=== PATIENT | male | born 1960 | race Caucasian/White ===

== ENCOUNTER 2023-07-02 11:54 | Day surgery (SDC) | payer MEDICAID, SELFPAY ==
[2023-07-02] VITALS (12 sets, daily range): BP systolic 130–208; BP diastolic 87–113; PULSE 56–81; RESP 16–20; TEMP 35.9–36.8; O2SAT 95–99; BMI 31.0
--- NOTE | ~2023-07-02 | XR_ITS ---
EXAMINATION: XR HAND, RIGHT CLINICAL INFORMATION: Laceration over second/third metacarpals posteriorly. COMPARISON: None available. TECHNIQUE: PA, lateral, and oblique views of the right hand. FINDINGS: Soft tissue laceration projects posterior to the region of the second metacarpal. Soft tissues are swollen in this area. No radiopaque foreign body. There appears to be punctate calcific density projecting posterior to the region of the 2nd metacarpal head. Gauze projects over the hand. Alignment is normal and hand and wrist. There is ulnar osteophyte formation of the distal radioulnar joint. Small osteophytes at first carpometacarpal joint and at some of the interphalangeal joints. XR/XR hand RT min 3V IMPRESSION: * Posttraumatic soft tissue swelling dorsal to region of second and third metacarpals without radiopaque foreign body. * The presence of punctate calcification dorsal to region of 2nd metacarpal head is suspicious for recent penetrating injury to the bone surface.
--- NOTE | 2023-07-02 11:57 | ED_ITS ---
HPI - General Adult General Chief complaint: Wound/Laceration Stated complaint: Finger laceration Time Seen by Provider: 07/02/23 11:59 Source: patient Mode of arrival: ambulatory Limitations: no limitations History of Present Illness HPI narrative: Patient is a 63 year old assigned male at with no reported medical history presenting to the emergency department today with a right hand injury. Patient states that he was working with a table saw cutting small wood pieces when he got cut on his right hand. Patient denies any dizziness, lightheadedness, abdominal pain, nausea, vomiting, fever, chills, blurry vision, double vision, loss of vision, chest pain, difficulty breathing, shortness of breath, back pain, night sweats, pain with urination, increased urinary frequency, increased urinary urgency, blood in his urine or stool, syncope or a near syncopal episode, bowel incontinence, bladder incontinence, bowel retention, bladder retention, or any other complaints at this time. Onset (ago): minute(s) Location: right and upper extremity Radiation: non-radiation Severity: moderate Severity scale (1-10): 5 Relieving factors: none Exacerbating factors: none Associated symptoms: denies other symptoms Treatments prior to arrival: none Related Data Home Medications Medication Instructions Recorded Confirmed olmesartan 40 1 tab PO QAM 07/02/23 07/02/23 mg-hydrochlorothiazide 12.5 mg tablet Previous Rx's Medication Instructions Recorded amoxicillin 875 mg-potassium 1 tab PO BID infection prophylaxis 07/02/23 clavulanate 125 mg tablet 14 days #28 tabs oxycodone-acetaminophen 5 mg-325 1 tab PO Q6-8H PRN pain (scale 07/02/23 mg tablet (Percocet) score 4-6) 7 days #42 tabs Allergies Allergy/AdvReac Type Severity Reaction Status Date / Time No Known Allergies Allergy Verified 07/02/23 11:57 Review of Systems 2 Constitutional: Constitutional: Reports no additional constitutional complaints, Denies chills, Denies fever(s) and Denies night sweats Eyes: Eyes: Reports no additional eye complaints, Denies blurry vision, Denies change in vision, Denies diplopia, Denies eye discharge, Denies loss of vision and Denies eye pain ENT: Denies dizziness Cardiovascular: Cardiovascular: Reports no additional cardiovascular complaints, Denies chest pain, Denies lightheadedness, Denies Loss of Consciousness and Denies dyspnea Respiratory: Respiratory: Reports no additional respiratory complaints and Denies dyspnea Gastrointestinal: Gastrointestinal: Reports no additional gastrointestinal complaints, Denies abdominal pain, Denies melena, Denies hematochezia, Denies change in bowel habits and Denies change in stool character Genitourinary: Genitourinary: Reports no additional male genitourinary complaints, Denies hematuria, Denies oliguria, Denies difficulty urinating, Denies dysuria, Denies urinary frequency, Denies urinary hesitancy, Denies urinary incontinence and Denies urinary urgency Musculoskeletal: Musculoskeletal: Reports no additional musculoskeletal complaints, Denies numbness and Denies tingling Comments: right hand pain / injury Neurologic: Denies dizziness, Denies loss of vision, Denies numbness and Denies tingling Psychiatric: Psychiatric: Reports no additional psychiatric complaints Endocrine: Endocrine: Reports no additional endocrine complaints Hematologic/Lymphatic: Hematologic/Lymphatic: Reports no additional hematologic/lymphatic complaints Allergic/Immunologic: Allergic/Immunologic: Reports no additional allergic/immunologic complaints [facility] Past Medical History Attestation statement: The following information was validated with the patient. Source: old records reviewed, obtained from family (patient's daughter provided additional history and confirmed the history provided by the patient) and nursing notes reviewed Medical History (Updated 07/02/23 @ 14:53 by Di Juares RN) HTN (hypertension) Surgical History (Updated 07/02/23 @ 14:53 by Di Juares RN) H/O toe surgery Social History Social History Patient Tobacco Use Status: Never used Tobacco Physical Exam ED Vital Signs: Vital Signs - 24 hr 07/02/23 12:38 07/02/23 12:49 07/02/23 14:45 Temperature 96.6 F L 97.9 F Pulse Rate 69 56 Respiratory Rate 18 18 18 Blood Pressure 159/103 H 208/103 H Pulse Oximetry 96 99 Oxygen Delivery Method Room Air Room Air 07/02/23 15:01 07/02/23 15:02 07/02/23 15:10 Temperature Pulse Rate 58 57 Respiratory Rate 20 20 Blood Pressure 174/113 H 163/108 H 159/103 H Pulse Oximetry 99 98 Oxygen Delivery Method Room Air 07/02/23 15:19 Temperature 97.6 F Pulse Rate 62 Respiratory Rate 18 Blood Pressure 149/98 H Pulse Oximetry 97 Oxygen Delivery Method Room Air BMI result Body Mass Index 31.0 Const General: cooperative, no acute distress, alert and awake Nutritional Appearance: well nourished Orientation/consciousness: patient oriented x3 Limitations: no limitations HENMT Head: Yes normal to inspection and Yes atraumatic Ears: hearing grossly normal bilaterally and external ears normal General nose exam: Normal external nose present, no nasal discharge noted and no epistaxis Face and sinus: Yes normal facial exam, No abrasion and No laceration Mouth: Normal oral and palatal mucosa present, no drooling and no muffled voice Eyes General: appearance normal, both eyes and all related structures Periorbital: periorbital findings normal Eyelids: Yes eyelids normal Conjunctivae: conjunctivae normal Pupils: Equal, round and reactive pupils present EOM: EOMs intact bilaterally Neck Neck: Yes normal visual inspection, Yes full ROM and Yes no lymphadenopathy Chest Chest palpation & inspection: normal inspection of the chest Resp Effort & Inspection: normal respiratory effort and able to speak in complete sentences GI Inspection: Yes normal to inspection Neuro General: patient oriented x3 and moves all extremities Cranial nerves: Yes Equal, round and reactive pupils present Cognition (Neuro): normal cognition Motor exam (neuro): 5/5 motor strength present throughout Sensory Exam: Normal double simultaneous stimulation for sensation Coordination: [id number] test normal Extrem Other: patient unable to extend the 2nd digit General: Yes capillary refill normal Psych Appearance: grossly normal Mental Status: mental status grossly normal Affect: normal affect Attitude: cooperative Thought process: Normal thought process present Thought content: Normal thought content present Insight: Good insight present (Psych) Medications Administered Discontinued Medications Generic Name Dose Route Start Last Admin Trade Name Freq PRN Reason Stop Dose Admin Diphtheria/Tetanus/Acell Pertussis 0.5 ml 07/02/23 11:57 07/02/23 12:20 Diphth,Pertus(Acell),Tet Adult 0.5 Ml Syringe IM 07/02/23 11:58 0.5 ml .ONCE ONE Administration Lidocaine HCl 15 ml 07/02/23 11:58 07/02/23 13:37 Lidocaine Hcl 1 % Mpf 5 Ml Vial SUBCUT 07/02/23 11:59 15 ml ONCE ONE Administration Medical Decision Making Medical Decision Making MDM Narrative: Patient is a 63 year old assigned male at with no reported medical history presenting to the emergency department today with a right hand laceration. Patient's physical exam was as noted in the physical exam portion of this note. Patient's blood work was unremarkable. Patient's EKG was unremarkable. Patient's right hand x-ray showed questionable bassam involvement of the 2nd digit. I spoke to the orthopedic team who recommended the patient come to the OR for washout and extensor tendon repair. I explained my physical exam findings as well as all test results to the patient and the patient's daughter. I answered all questions asked by the patient and the patient's daughter. Patient brought up to date on tetanus while in the department. Patient [and the patient's] verbalized agreement and understanding with this treatment plan and surgical washout with extensor repair. Differential Diagnosis Differential Diagnoses: The differential diagnosis associated with the presentation includes Extensor tendon rupture Extensor tendon laceration Hand laceration Hand fracture Admission/Observation Consideration of admission/observation: Escalation of care including admission/observation considered Patient to go to the OR with orthopedic team. Consult Healthcare Provider Management of the patient was discussed with: Skewer Up (spoke with the orthopedic team as noted in the MDM Rational portion of this note.) Lab Data [facility] Lab Attestation statement: I reviewed the patient's lab results. My interpretation of these results are in the MDM Rationale portion of this note. 07/02/23 14:37 07/02/23 14:37 Labs: Lab Results 07/02/23 Range/Units 14:37 WBC 8.0 (4.8-10.8) X10*3/uL RBC 5.50 (4.60-5.80) X10*6/uL Hgb 15.6 (14.0-18.0) g/dl Hct 46.5 (42.0-52.0) % MCV 84.5 (80.0-98.0) fL MCH 28.4 (27.0-33.0) pg MCHC 33.5 (31.0-36.0) g/dl RDW 12.9 (11.0-16.0) % Plt Count 187 (160-400) X10*3/uL MPV 9.7 (9.4-12.4) fL Immature Gran % (Auto) 0.3 (0.0-0.4) % Neut % (Auto) 67.3 (45-73) % Lymph % (Auto) 23.4 (20-40) % Pacific % (Auto) 7.4 (2-11) % Eos % (Auto) 1.1 (0-4) % Baso % (Auto) 0.5 (0-2) % Lymph # (Auto) 1.9 (1.2-4.9) X10*3/uL Pacific # (Auto) 0.6 (0.1-1.2) X10*3/uL Eos # (Auto) 0.1 (0.0-0.4) X10*3/uL Baso # (Auto) 0.0 (0.0-0.2) X10*3/uL Abs Immat Gran (auto) 0.02 (0.00-0.03) X10*3/uL Absolute Neuts (auto) 5.4 (2.0-8.3) x10*3/uL Absolute Nucleated RBC 0.000 (0.0-0.012) X10*3/uL Nucleated RBC % (auto) 0.0 (0.0-0.2) /100WBC Sodium 144 (135-145) mmol/L Potassium 4.4 (3.3-5.1) mmol/L Chloride 107 (96-108) mmol/L Carbon Dioxide 30 H (22-29) mmol/L Anion Gap 11 L (12-20) BUN 12 (9-16) mg/dL Creatinine 0.85 (0.5-1.4) mg/dL Estim Creat Clear Calc 101.3 Estimated GFR > 60 Random Glucose 91 (60-115) mg/dL Calcium 9.9 (8.4-10.2) mg/dL Total Bilirubin 0.6 (0.0-1.0) mg/dL AST 31 (5-37) U/L ALT 38 (0-40) U/L Alkaline Phosphatase 88 (39-117) U/L Total Protein 7.8 (6.5-8.0) g/dL Albumin 4.6 (3.5-5.0) g/dL Independent Interpretation I performed an independent interpretation of an: EKG and Plain X-Ray Interpretation: My interpretation is in agreement with the radiologist's impression of this imaging study. - EXAMINATION: XR HAND, RIGHT CLINICAL INFORMATION: Laceration over second/third metacarpals posteriorly. COMPARISON: None available. TECHNIQUE: PA, lateral, and oblique views of the right hand. FINDINGS: Soft tissue laceration projects posterior to the region of the second metacarpal. Soft tissues are swollen in this area. No radiopaque foreign body. There appears to be punctate calcific density projecting posterior to the region of the 2nd metacarpal head. Gauze projects over the hand. Alignment is normal and hand and wrist. There is ulnar osteophyte formation of the distal radioulnar joint. Small osteophytes at first carpometacarpal joint and at some of the interphalangeal joints. XR/XR hand RT min 3V IMPRESSION: * Posttraumatic soft tissue swelling dorsal to region of second and third metacarpals without radiopaque foreign body. * The presence of punctate calcification dorsal to region of 2nd metacarpal head is suspicious for recent penetrating injury to the bone surface. Dictated By: Marco Esquivel MD Signed By: Electronically signed by Marco Esquivel MD 07/02/23 1314 - Vent. Rate: 056 BPM Atrial Rate: 056 BPM P-R Int: 166 ms QRS Dur: 086 ms QT Int: 424 ms P-R-T Axes: 010 -15 037 degrees QTc Int: 409 ms Sinus bradycardia Minimal voltage criteria for LVH, may be normal variant ( R in aVL ) Borderline ECG No previous ECGs available Referred By: Chyna Sepulveda Electronically Signed By:AUDIE LUO MD Dictated By: Audie Luo MD Signed By: Electronically signed by Audie Luo MD 07/02/23 7271 Radiology Impression Discussion of test interpretation with radiology: I have reviewed the radiologist's reading. Independent Historian Clinical information obtained from an independent historian. History obtained from or confirmed by: Other (patient's daughter provided additional history and confirmed the history provided by the patient) Critical Care Time Critical Care Time Critical Care Time: Yes Total Critical Care Time: 128 Attestation: I spent 128 minutes of Critical Care Time with this patient. This does not include time spent on separately reported billable procedures. Discharge Plan Discharge Clinical Impression: Laceration, Extensor tendon laceration, finger, open wound Patient Disposition: Still a Patient Transfer Details: TO THE OR Discharge Date/Time: 07/02/23 15:12
--- NOTE | 2023-07-02 12:00 | PC.NURSE ---
PT REPORTED THAT HE WAS AT HOME CUTTING WOOD W HIS CHAINSAW, IT SLIPPED AND CUT HIS R HAND. PT'S HAND CLEANED AND COVERED PENDING EVAL.
[2023-07-02] MEDS: Diphth,Pertus(ACell),Tet Adult 0.5 ML SYRINGE IM (12:20)
[2023-07-02] MEDS: Lidocaine HCl 1 % MPF 5 ML VIAL 15 ML SUBCUT (13:37)
--- NOTE | 2023-07-02 14:06 | ECG_ITS ---
Test Reason : preop Blood Pressure : / mmHG Vent. Rate : 056 BPM Atrial Rate : 056 BPM P-R Int : 166 ms QRS Dur : 086 ms QT Int : 424 ms P-R-T Axes : 010 -15 037 degrees QTc Int : 409 ms Sinus bradycardia Minimal voltage criteria for LVH, may be normal variant ( R in aVL ) Borderline ECG No previous ECGs available Referred By: Chyna Sepulveda Electronically Signed By:KELLI LUO MD
--- NOTE | 2023-07-02 14:44 | P.HPOP_ITS ---
History of Present Illness History of Present Illness Date of Service: 07/02/23 Chief complaint: Finger laceration Narrative: Bhaskar Hayes is a 63 year old male who presented to the ED after sustaining a table saw injury to the dorsal aspect of the right hand. He has no significant past medicine. Patient reports no oral intake today. Review of Systems 2 Review of Systems: Yes all other systems are reviewed and are negative Meds Allergies Allergy/AdvReac Type Severity Reaction Status Date / Time No Known Allergies Allergy Verified 07/02/23 11:57 Physical Exam 2 Vital Signs: Vital Signs: Last Vital Signs Temp 96.6 F L 07/02/23 12:38 Pulse 69 07/02/23 12:38 Resp 18 07/02/23 12:49 BP 159/103 H 07/02/23 12:38 Pulse Ox 96 07/02/23 12:38 O2 Del Method Room Air 07/02/23 12:38 BMI result Body Mass Index 31.0 Const: General: cooperative, healthy appearing and no acute distress Resp: Effort & Inspection: normal respiratory effort and able to speak in complete sentences Cardio: Rate: regular rate Peripheral pulses: Peripheral pulses 2+ throughout GI: Palpation (GI): Soft to palpation Skin: Lesions: no lesions Rashes: no rashes Extrem: Other: Right hand laceration over the dorsal aspect over the MCP joints on the index and middle fingers. Unable to extend the index finger. Able to extend the middle, ring, little, and thumb. Able to flex all digits. Capillary refill is brisk. Results Labs 07/02/23 14:37 07/02/23 14:37 Labs: All other labs normal. Assessment and Plan (1) Extensor tendon laceration, finger, open wound: Status: Acute I discussed the case with Dr. Dillon who was also available to see the patient and explained the extent of the injury to the patient and options available which include surgical intervention. I explained the procedure in detail along with the length of recovery and rehab course. I explained the risk, benefits and alternatives. Risk including, but not limited to infection, blood clots, bleeding, non union or malunion and nerve/tissue damage to surrounding areas. I answered all their questions and with their understanding they have consented to move forward with extensor tendon repair of the right hand. I also spoke with his daughter Connie who can be reached at [phone] (2) Laceration: Status: Acute Quality Stroke Does the patient have a stroke diagnosis?: No VTE Prior VTE?: No VTE Risk Level:: Medical - moderate - high VTE Device Contraindication: N/A - Device Ordered VTE Drug Contraindication: N/A - Med Ordered Procedures Date of Service Date of Service: 07/02/23
[2023-07-02 14:49] LABS: MANUAL DIFF FLAG NO
[2023-07-02 14:54] LABS: Basophils Percent Auto 0.5 % (0-2); Eosinophils Absolute Auto 0.1 X10*3/uL (0.0-0.4); Eosinophils Percent Auto 1.1 % (0-4); Hematocrit 46.5 % (42.0-52.0); Hemoglobin 15.6 g/dl (14.0-18.0); Imm Gran Abs Auto 0.02 X10*3/uL (0.00-0.03); Imm Gran Pct Auto 0.3 % (0.0-0.4); Lymphocytes Absolute Auto 1.9 X10*3/uL (1.2-4.9); Lymphocytes Percent Auto 23.4 % (20-40); Mean Corpuscular HGB Conc 33.5 g/dl (31.0-36.0); Mean Corpuscular Hemoglobin 28.4 pg (27.0-33.0); Mean Corpuscular Volume 84.5 fL (80.0-98.0); Mean Platelet Volume 9.7 fL (9.4-12.4); Monocytes Absolute Auto 0.6 X10*3/uL (0.1-1.2); Monocytes Percent Auto 7.4 % (2-11); Neutrophils Absolute Auto 5.4 x10*3/uL (2.0-8.3); Neutrophils Percent Auto 67.3 % (45-73); Platelet Count 187 X10*3/uL (160-400); Red Cell Distribution Width 12.9 % (11.0-16.0)
--- NOTE | 2023-07-02 15:02 | PC.NURSE ---
iv placed in the ed
[2023-07-02 15:07] LABS: Alanine Aminotransferase 38 U/L (0-40); Albumin Level 4.6 g/dL (3.5-5.0); Alkaline Phosphatase 88 U/L (39-117); Anion Gap 11 (12-20); Aspartate Amino Transferase 31 U/L (5-37); Bilirubin Total 0.6 mg/dL (0.0-1.0); Blood Urea Nitrogen 12 mg/dL (9-16); Calcium 9.9 mg/dL (8.4-10.2); Carbon Dioxide 30 mmol/L (22-29); Chloride 107 mmol/L (96-108); Creatinine Clr Calc Pharmacy 101.3; Estimated Glomerular Filt Rate > 60; Glucose Random 91 mg/dL (60-115); Potassium 4.4 mmol/L (3.3-5.1); Sodium 144 mmol/L (135-145); Total Protein 7.8 g/dL (6.5-8.0)
--- NOTE | 2023-07-02 15:23 | PC.NURSE ---
report given to charli lobato pt pending surgery aware
--- NOTE | 2023-07-02 15:50 | MHC.SHP ---
Pre-Procedural Eval Section A - 24 Hr Update-Section A only Date of Service: 07/02/23 The patient is an INPATIENT: No Changes since office visit: No Cold of Flu in the past 2 weeks, No New Medical Problems, No Changes in Medication and No Patient answered all questions The patient has been examined within 24 hours of the surgical procedure. The History & Physical has been completed within 30 days and I have reviewed it.: Yes Section B - Complete if H&P > 30 days Chief Complaint: Finger laceration Allergies: Allergies Allergy/AdvReac Type Severity Reaction Status Date / Time No Known Allergies Allergy Verified 07/02/23 11:57 Plan I have reviewed the history and physical and performed a pertinent physical examination on my patient. No changes have occurred unless specified. Time Spent With Patient Time: Total time managing care of this patient today ____ minutes.
--- NOTE | 2023-07-02 16:10 | HO.ANESPROP2 ---
[facility] [place] Active Problems Active Problems: All Active Problems (Updated 07/02/23 @ 14:53 by Di Juares RN) Extensor tendon laceration, finger, open wound (Acute) Laceration (Acute) Past Medical History Medical History (Updated 07/02/23 @ 14:53 by Di Juares RN) HTN (hypertension) Family History Family history of problems with anesthesia: No Surgical History Surgical History (Updated 07/02/23 @ 14:53 by Di Juares RN) H/O toe surgery History of Problems with Anesthesia: No Social History Social History Patient Tobacco Use Status: Never used Tobacco Meds Allergies Allergy/AdvReac Type Severity Reaction Status Date / Time No Known Allergies Allergy Verified 07/02/23 11:57 Active Medications: Current Medications Cefazolin Sodium/Dextrose (Ancef) 2 gm in 50 mls @ 100 mls/hr IV PREOP ONE Stop: 07/02/23 16:19 Home Medications Medication Instructions Recorded Confirmed Last Taken Type olmesartan 40 1 tab PO QAM 07/02/23 07/02/23 07/02/23 History mg-hydrochlorothiazide 12.5 mg tablet Exam Height,Weight and Vital Signs: Height 5 ft 9 in Weight 95.254 kg Last Vital Signs Temp 97.6 F 07/02/23 15:19 Pulse 62 07/02/23 15:19 Resp 18 07/02/23 15:19 BP 149/98 H 07/02/23 15:19 Pulse Ox 97 07/02/23 15:19 O2 Del Method Room Air 07/02/23 15:19 Pertinent Lab Results Pertinent Lab Results: Laboratory Tests 07/02/23 14:37 WBC 8.0 RBC 5.50 Hgb 15.6 Hct 46.5 MCV 84.5 MCH 28.4 MCHC 33.5 RDW 12.9 Plt Count 187 MPV 9.7 Immature Gran % (Auto) 0.3 Neut % (Auto) 67.3 Lymph % (Auto) 23.4 Mayes % (Auto) 7.4 Eos % (Auto) 1.1 Baso % (Auto) 0.5 Lymph # (Auto) 1.9 Mayes # (Auto) 0.6 Eos # (Auto) 0.1 Baso # (Auto) 0.0 Abs Immat Gran (auto) 0.02 Absolute Neuts (auto) 5.4 Absolute Nucleated RBC 0.000 Nucleated RBC % (auto) 0.0 Sodium 144 Potassium 4.4 Chloride 107 Carbon Dioxide 30 H Anion Gap 11 L BUN 12 Creatinine 0.85 Estim Creat Clear Calc 101.3 Estimated GFR > 60 Random Glucose 91 Calcium 9.9 Total Bilirubin 0.6 AST 31 ALT 38 Alkaline Phosphatase 88 Total Protein 7.8 Albumin 4.6 Airway Mallampati Class: III TM Dist: <=3cm Neck ROM: Full Loose/Missing/Broken Teeth: No Heart: rrr Lungs: cta Assessment and Plan Final Anesthetic Review Family History of Problems with Anesthesia: No History of Problems with Anesthesia: No NPO: Yes ASA Class: II and Emergency Final Preanesthetic Review: No Changes in Pt Med Stat, Meds/Allgs Chart Reviewed, Consent Obtained/Reviewed and Anes Risks/Benef Reviewed Patient Risk: Intermediate Procedure Risk: Low Anesthetic Plan Anesthetic Plan: GA Disposition: Standard PACU
--- NOTE | 2023-07-02 17:02 | P.BOP_ITS ---
Brief Operative Note Date of Service: 07/02/23 Pre-op diagnosis: Right dorsal hand laceration Post-op diagnosis: same Procedure: 1) Extensor tendon repair right IF 2) Right extensor jordan repair, right IF 3) Irrigation and debridement right dorsal hand wound Surgeon: hTomas Dillon MD Anesthesia: GETA and local Was an Motor Equipment Lieutenant used for this Procedure?: Yes Motor Equipment Lieutenant: Michela Becker Estimated blood loss (mL): 25 IV fluids (mL): 1,000 Pathology: none sent Condition: stable Disposition: PACU
--- NOTE | 2023-07-06 16:22 | P.OP_ITS ---
Operative Note Operative Note Date of Service: 07/02/23 Narrative: Date of Service: 07/02/23 Pre-op diagnosis: Right dorsal hand laceration Post-op diagnosis: same Procedure: 1) Extensor tendon repair right IF 2) Right extensor jordan repair, right IF 3) Irrigation and debridement right dorsal hand wound Surgeon: Thomas Dillon MD Anesthesia: GETA and local Was an Automotive Electrician used for this Procedure?: Yes Automotive Electrician: Michela Becker Estimated blood loss (mL): 25 IV fluids (mL): 1,000 Pathology: none sent Condition: stable Disposition: PACU Patient was brought to the operating room and placed supine on the surgical table. He was prepped and draped in standard sterile fashion and a time out was called to identify proper site, proper procedure and IV antibiotics per weight were administered. There was a open oblique incision just distal to the dorsum of the index finger MCP joint. I opened this up without additional need for incision and explored the wound. The deep structures over the long finger were unharmed. There was a complete laceration of the extensor jordan and extensor tendon of the index finger with bony penetration of the proximal aspect of the proximal phalanx. I debrided thoroughly and irrigated copiously. I explored the MCP capsule but this was unharmed. The extensor jordan along with the extensor digitorum were lacerated. I debrided out the 2 tendon ends and then repaired these with 5 0 8 strand Prolene repair. I had excellent strengthen the repair took the finger through full range of motion was satisfied with the stability. I then repaired the extensor jordan along the radial and ulnar aspect of the proximal phalanx. Once completed I again took the index finger through range of motion and the repair was stable. I then irrigated copiously and closed the skin with interrupted nylon. Patient was placed into a sterile dressing and a well-padded splint in a position of safety. He was awakened from anesthesia and brought to recovery room in stable condition. There were no known complications.
== END 2023-07-02 17:52 | disposition home or self-care (01) ==
LOC: HO.ED 14:27 → HO.SSS 14:31
PROVIDERS: Physician Assistant Medical; Emergency Provider Emergency Medicine; Visit Provider Orthopaedic Surgery
PROC: (CPT 26418; principal; 2023-07-02 15:30)
PROC: (CPT 26418; 2023-07-02 15:30)
DX: S66.320A Laceration of extensor muscle, fascia and tendon of right index finger at wrist and hand level, initial encounter (principal); S61.411A Laceration without foreign body of right hand, initial encounter; W27.0XXA Contact with workbench tool, initial encounter; Y93.89 Activity, other specified; Y92.9 Unspecified place or not applicable; Y99.9 Unspecified external cause status; Z23 Encounter for immunization; I10 Essential (primary) hypertension; Z79.899 Other long term (current) drug therapy
CPT/HCPCS: 26418 ×2; 11042; 36415; 73130; 80053; 85025; 90471; 90715; 93005; 99283; 99285; J0690; J2250; J2704; J2795; J3010

== ENCOUNTER → 2023-07-02 14:06 | Outpatient (BNV) | payer MEDICAID, SELFPAY | PROVIDERS: Emergency Provider Emergency Medicine; Visit Provider Internal Medicine Cardiovascular Disease | DX: Z01.818 Encounter for other preprocedural examination (principal) | CPT/HCPCS: 93010 ==

== ENCOUNTER → 2023-07-02 14:20 | Outpatient (BNV) | payer MEDICAID, SELFPAY | PROVIDERS: Emergency Provider Emergency Medicine; Visit Provider Physician Assistant | DX: S61.210A Laceration without foreign body of right index finger without damage to nail, initial encounter (principal); S66.320A Laceration of extensor muscle, fascia and tendon of right index finger at wrist and hand level, initial encounter | CPT/HCPCS: 26418; 99222 ==

== ENCOUNTER 2023-07-10 12:10 | Outpatient (AMB) | payer MEDICAID, SELFPAY ==
--- NOTE | 2023-07-10 12:27 | A.OFFVIS_ITS ---
Intake Intake Visit Reasons: PO - Extensor tendon laceration per NE Intake Note: Bhaskar is a 63 year old rightmale who presents today for a post op appointment s/p right extendon tendon/jordan repair 07/02/23 NE. Patient reports he is doing good. Having some pain but he states is a 2 out of 10 on the pain scale. Allergies No Known Allergies Allergy (Verified 07/10/23 12:30) HPI PO - Extensor tendon laceration per NE HPI Details 63-year-old male who presents in the off ice today 8 days status post right index finger extensor tendon repair, right extensor jordan repair, and irrigation and debridement right dorsal hand wound, which was performed by Dr. Dillon on 07/02/2023. While in the office today the patient reports having some pain and rates it a 2/10. [facility] Medical History (Updated 07/10/23 @ 00:01 by Nilda Alexandra) HTN (hypertension) Surgical History (Updated 07/02/23 @ 14:53 by Di Juares RN) H/O toe surgery Social History (Updated 07/10/23 @ 12:32 by Michael Watson) Alcohol intake: never Patient Tobacco Use Status: Never used Tobacco Current occupational status: employed Current occupation: [employer]/ right hand dominant Review of Systems Const All systems reviewed & are unremarkable except as noted in HPI and below Physical Exam Const General: cooperative, healthy appearing and no acute distress Resp Effort & Inspection: normal respiratory effort and able to speak in complete sentences Cardio Rate: regular rate Peripheral pulses: Peripheral pulses 2+ throughout GI Palpation (GI): Soft to palpation Skin Lesions: no lesions Rashes: no rashes Extrem Other: Right hand: Laceration on the dorsal aspect that is clean, dry, and intact. Sutures intact. No surrounding erythema or drainage. No signs of infection. Sensation intact. Capillary refill is brisk. Office Procedures Casting/Splints 29096-Ylna/Wrist Cast Application Procedure code (CPT) selection complete Assessment & Plan Assessment & Plan (1) Extensor tendon laceration, finger, open wound: Code(s): S56.429A - Laceration of extensor muscle, fascia and tendon of unspecified finger at forearm level, initial encounter; S61.209A - Unspecified open wound of unspecified finger without damage to nail, initial encounter (2) Laceration: Plan Mr. Hayes is a 63-year-old male who presents in the office today 8 days status post right index finger extensor tendon repair, right extensor jordan repair, and irrigation and debridement right dorsal hand wound, which was performed by Dr. Dillon on 07/02/2023. While in the office today the patient reports having some pain and rates it a 2/10. Dr. Aemzquita was available to discuss the case with me and it was recommended that the patient is placed in a cast for a total of 6 weeks post-op. The cast will leave the thumb, ring, and little fingers free and will include the index and middle fingers. He will be casted to the PIP of the index and middle fingers, leaving the DIP joints able to flex and extend. I anticipated removal of the remaining sutures at the 1 week follow up appointment. Follow up will be in one week for a cast off wound check, or sooner if needed. Patient Instructions: Scribed by Ambar Stovall medical technologist clinical, for Michela Becker PA-C on 07/10/2023 at 12:20 pm, EST. Coding Level of Care Code Global (75404) Diagnoses Extensor tendon laceration, finger, open wound S56.429A; S61.209A Laceration CPT Codes Casting - CPT: 64413-Xwnl/Wrist Cast Application ([id number])
== END 2023-07-10 13:25 | disposition home or self-care (01) ==
PROVIDERS: Visit Provider Physician Assistant
DX: S56.421A Laceration of extensor muscle, fascia and tendon of right index finger at forearm level, initial encounter (principal); S61.201A Unspecified open wound of left index finger without damage to nail, initial encounter
CPT/HCPCS: 29085; 99024

== ENCOUNTER → 2023-07-10 12:10 | Outpatient (BNVA) | payer MEDICAID, SELFPAY | PROVIDERS: Visit Provider Physician Assistant | DX: S56.421D Laceration of extensor muscle, fascia and tendon of right index finger at forearm level, subsequent encounter (principal); S61.401D Unspecified open wound of right hand, subsequent encounter | CPT/HCPCS: 29085; 99212 ==

== ENCOUNTER 2023-07-17 08:32 | Outpatient (AMB) | payer MEDICAID, SELFPAY ==
--- NOTE | 2023-07-17 08:40 | MHC.OFFVIS ---
Intake Intake Visit Reasons: ov- extensor tendon repair 07/02/2023-sutures out Intake Note: Bhaskar is a 63 year old right hand dominant male who presents today for a post op appointment s/p right extendon tendon/jordan repair 07/02/23 NE. Patient reports he is doing well. He states no pain or discomfort. Allergies No Known Allergies Allergy (Verified 07/17/23 08:48) HPI ov- extensor tendon repair 07/02/2023-sutures out HPI Details 63-year-old right hand dominant male who presents in the office today 15 days status post right index finger extensor tendon repair, right extensor jordan repair, and irrigation and debridement right dorsal hand wound, which was performed by Dr. Dillon on 07/02/2023. I last saw the patient in the office on 07/10/2023 when he was placed into a cast with the thumb, ring, and little finger free. He was be casted to the PIP of the index and middle fingers, leaving the DIP joints able to flex and extend. While in the office today the patient reports he is doing well. He denies any pain or discomfort. [facility] Medical History (Updated 07/17/23 @ 08:50 by Ambar Stovall) HTN (hypertension) Surgical History (Updated 07/02/23 @ 14:53 by Di Juares RN) H/O toe surgery Social History Alcohol intake: never Patient Tobacco Use Status: Never used Tobacco Current occupational status: employed Current occupation: [employer]/ right hand dominant Review of Systems Const All systems reviewed & are unremarkable except as noted in HPI and below Physical Exam Const General: cooperative, healthy appearing and no acute distress Resp Effort & Inspection: normal respiratory effort and able to speak in complete sentences Cardio Rate: regular rate Peripheral pulses: Peripheral pulses 2+ throughout GI Palpation (GI): Soft to palpation Skin Lesions: no lesions Rashes: no rashes Extrem Other: Right hand: Laceration on the dorsal aspect that is clean, dry, and intact. Remaining sutures are intact. No surrounding erythema or drainage. No signs of infection. Sensation intact. Capillary refill is brisk. Office Procedures Casting/Splints 42983-Tikw/Wrist Cast Application Procedure code (CPT) selection complete Assessment & Plan Assessment & Plan (1) Extensor tendon laceration, finger, open wound: Code(s): S56.429A - Laceration of extensor muscle, fascia and tendon of unspecified finger at forearm level, initial encounter; S61.209A - Unspecified open wound of unspecified finger without damage to nail, initial encounter Qualifiers: Encounter type: subsequent encounter Qualified Code(s): S56.429D - Laceration of extensor muscle, fascia and tendon of unspecified finger at forearm level, subsequent encounter; S61.209D - Unspecified open wound of unspecified finger without damage to nail, subsequent encounter (2) Laceration: Plan Ms. Hayes is a 63-year-old right hand dominant male who presents in the office today 15 days status post right index finger extensor tendon repair, right extensor jordan repair, and irrigation and debridement right dorsal hand wound, which was performed by Dr. Dillon on 07/02/2023. I last saw the patient in the office on 07/10/2023 when he was placed into a cast with the thumb, ring, and little finger free. He was be casted to the PIP of the index and middle fingers, leaving the DIP joints able to flex and extend. While in the office today the patient reports he is doing well. He denies any pain or discomfort. Remaining sutures were removed. He was placed back into the custom molded cast to include the index and middle fingers in slight flexion. I educated the patient on cast care and should he need a cast change for any reason he should contact the office. I educated the importance of keeping the area clean and dry. Follow up will be in 3 weeks for cast removal, or sooner if needed. Patient Instructions: Scribed by Ambar Stovall nuclear medical technologist, for Michela Becker PA-C on 07/17/2023 at 8:40 am, EST. Coding Level of Care Code Global (15890) Diagnoses Extensor tendon laceration of finger with open wound, subsequent encounter S56.429D; S61.209D Encounter type: subsequent encounter Laceration CPT Codes Casting - CPT: 23216-Rdlg/Wrist Cast Application ([id number])
== END 2023-07-17 09:46 | disposition home or self-care (01) ==
PROVIDERS: Visit Provider Physician Assistant
DX: S56.421A Laceration of extensor muscle, fascia and tendon of right index finger at forearm level, initial encounter (principal); S61.200A Unspecified open wound of right index finger without damage to nail, initial encounter
CPT/HCPCS: 29085; 99024

== ENCOUNTER → 2023-07-17 08:32 | Outpatient (BNVA) | payer MEDICAID, SELFPAY | PROVIDERS: Visit Provider Physician Assistant | DX: Z47.89 Encounter for other orthopedic aftercare (principal); S56.429D Laceration of extensor muscle, fascia and tendon of unspecified finger at forearm level, subsequent encounter; S61.209D Unspecified open wound of unspecified finger without damage to nail, subsequent encounter | CPT/HCPCS: 29085; 99212 ==

== ENCOUNTER 2023-08-07 08:24 | Outpatient (AMB) | payer MEDICAID, SELFPAY ==
[2023-08-07 08:26] VITALS: BMI 31.7
--- NOTE | 2023-08-07 08:26 | MHC.OFFVIS ---
Vital Signs 08/07/23 08:26 Height 5 ft 9 in Weight 215 lb BMI 31.7 Intake Visit Reasons: PO - Extensor tendon laceration per NE Intake Note: Bhaskar is a 63 year old right hand dominant male who presents today for a post op appointment s/p right extendon tendon/jordan repair 07/02/23 NE. Patient reports no pain or concerns today. Accompanied by: Daughter Allergies No Known Allergies Allergy (Verified 08/07/23 08:30) HPI HPI PO - Extensor tendon laceration per NE: Details: 63-year-old right hand dominant male who presents in the office today 5 weeks status post right index finger extensor tendon repair, right extensor jordan repair, and irrigation and debridement right dorsal hand wound, which was performed by Dr. Dillon on 07/02/2023. I last saw the patient in the office on 07/17/2023 when he was placed back into a cast with the index and middle fingers in slight flexion. While in the office today the patient reports no pain or concerns. He would like to request removal of the cast today. [facility] Medical History (Updated 07/17/23 @ 08:50 by Ambar Stovall) HTN (hypertension) Surgical History (Updated 07/02/23 @ 14:53 by Di Juares RN) H/O toe surgery Social History Alcohol intake: never Patient Tobacco Use Status: Never used Tobacco Current occupational status: employed Current occupation: [employer]/ right hand dominant Review of Systems Const All systems reviewed & are unremarkable except as noted in HPI and below Physical Exam Vital Signs: BMI result Body Mass Index 31.7 Const General: cooperative, healthy appearing and no acute distress Resp Effort & Inspection: normal respiratory effort and able to speak in complete sentences Cardio Rate: regular rate Peripheral pulses: Peripheral pulses 2+ throughout GI Palpation (GI): Soft to palpation Skin Lesions: no lesions Rashes: no rashes Extrem Other: Right hand: Laceration on the dorsal aspect that is clean, dry, and intact. No surrounding erythema or drainage. No signs of infection. Lacking about 3cm from making a closed fist with the index finger. Sensation intact. Capillary refill is brisk. Assessment & Plan Assessment & Plan (1) Extensor tendon laceration, finger, open wound: Code(s): S56.429A - Laceration of extensor muscle, fascia and tendon of unspecified finger at forearm level, initial encounter; S61.209A - Unspecified open wound of unspecified finger without damage to nail, initial encounter Category: Medical Qualifiers: Encounter type: subsequent encounter Qualified Code(s): S56.429D - Laceration of extensor muscle, fascia and tendon of unspecified finger at forearm level, subsequent encounter; S61.209D - Unspecified open wound of unspecified finger without damage to nail, subsequent encounter (2) Laceration: Category: Medical Plan Mr. Hayes is a 63-year-old right hand dominant male who presents in the office today 5 weeks status post right index finger extensor tendon repair, right extensor jordan repair, and irrigation and debridement right dorsal hand wound, which was performed by Dr. Dillon on 07/02/2023. I last saw the patient in the office on 07/17/2023 when he was placed back into a cast with the index and middle fingers in slight flexion. While in the office today the patient reports no pain or concerns. He would like to request removal of the cast today. Patient has expected postoperative stiffness. A referral to occupational therapy was made. He does not need to cover the laceration stie on the right hand's dorsal aspect unless he is working with things that might get the laceration dirty to avoid infection risk. Follow up will be in 2 weeks for a ROM check, or sooner if needed. Orders: Orders OT Evaluation and Treatment Today S56.429D - Laceration of extensor muscle, fascia and tendon of unspecified finger at forearm level, subsequent encounter, S61.209D - Unspecified open wound of unspecified finger without damage to nail, subsequent encounter Patient Instructions: Scribed by Ambar Stovall medical laboratory technical officer, for Michela Becker PA-C on 08/07/2023 at 8:26 am, EST. Coding Level of Care Code Global (41606) Diagnoses Extensor tendon laceration of finger with open wound, subsequent encounter S56.429D; S61.209D Encounter type: subsequent encounter Laceration
== END 2023-08-07 08:57 | disposition home or self-care (01) ==
PROVIDERS: Visit Provider Physician Assistant
DX: S56.429D Laceration of extensor muscle, fascia and tendon of unspecified finger at forearm level, subsequent encounter (principal); S61.209D Unspecified open wound of unspecified finger without damage to nail, subsequent encounter
CPT/HCPCS: 99024

== ENCOUNTER → 2023-08-07 08:24 | Outpatient (BNVA) | payer MEDICAID, SELFPAY | PROVIDERS: Visit Provider Physician Assistant | DX: S56.421D Laceration of extensor muscle, fascia and tendon of right index finger at forearm level, subsequent encounter (principal); S61.200D Unspecified open wound of right index finger without damage to nail, subsequent encounter | CPT/HCPCS: 99212 ==

== ENCOUNTER 2023-08-21 08:35 | Outpatient (AMB) | payer MEDICAID, SELFPAY ==
--- NOTE | 2023-08-21 08:36 | MHC.OFFVIS ---
Vital Signs 08/21/23 08:40 Height 5 ft 9 in Weight 215 lb BMI 31.7 Intake Visit Reasons: PO - Right IF Extensor Tend Repair 07/17/2023 Intake Note: Bhaskar is a 63 year old right hand dominant male who presents today for a ROM check/post op appointment s/p right extendon tendon/jordan repair 07/02/23 NE. Patient reports no pain or discomfort. He expresses that his ROM has improved. Allergies No Known Allergies Allergy (Verified 08/21/23 08:40) HPI HPI PO - Right IF Extensor Tend Repair 07/17/2023: Details: 63-year-old male who presents in the office today for a ROM check; 7 weeks status post right index finger extensor tendon repair, right extensor jordan repair, and irrigation and debridement right dorsal hand wound, which was performed by Dr. Dillon on 07/02/2023. I last saw the patient in the office on 08/07/2023 when he was referred to occupational therapy. While in the office today the patient reports no pain or discomfort. He also reports improvement with his ROM. [facility] Medical History (Updated 07/17/23 @ 08:50 by Ambar Stovall) HTN (hypertension) Surgical History (Updated 07/02/23 @ 14:53 by Di Juares RN) H/O toe surgery Social History Alcohol intake: never Patient Tobacco Use Status: Never used Tobacco Current occupational status: employed Current occupation: [employer]/ right hand dominant Review of Systems Const All systems reviewed & are unremarkable except as noted in HPI and below Physical Exam Vital Signs: BMI result Body Mass Index 31.7 Const General: cooperative, healthy appearing and no acute distress Resp Effort & Inspection: normal respiratory effort and able to speak in complete sentences Cardio Rate: regular rate Peripheral pulses: Peripheral pulses 2+ throughout GI Palpation (GI): Soft to palpation Skin Lesions: no lesions Rashes: no rashes Extrem Other: Right hand: Normal to inspection. No ecchymosis, erythema, or edema. Able to perform full finger flexion, extension, abduction, adduction, finger cross, okay sign, and thumbs up without deficit. Slight stiffness with the index finger with making a closed fist. Sensation intact. Capillary refill is brisk. Radial pulse intact. Assessment & Plan Assessment & Plan (1) Extensor tendon laceration, finger, open wound: Code(s): S56.429A - Laceration of extensor muscle, fascia and tendon of unspecified finger at forearm level, initial encounter; S61.209A - Unspecified open wound of unspecified finger without damage to nail, initial encounter Category: Medical Qualifiers: Encounter type: subsequent encounter Qualified Code(s): S56.429D - Laceration of extensor muscle, fascia and tendon of unspecified finger at forearm level, subsequent encounter; S61.209D - Unspecified open wound of unspecified finger without damage to nail, subsequent encounter (2) Laceration: Category: Medical Plan Mr. Hayes is a 63-year-old male who presents in the office today for a ROM check; 7 weeks status post right index finger extensor tendon repair, right extensor jordan repair, and irrigation and debridement right dorsal hand wound, which was performed by Dr. Dillon on 07/02/2023. I last saw the patient in the office on 08/07/2023 when he was referred to occupational therapy. While in the office today the patient reports no pain or discomfort. He also reports improvement with his ROM. Patient will continue to work on ROM and strengthening of the right hand. He is content where he has made progress and will return to normal activities as tolerated. Follow up will be PRN, or sooner if needed. Patient Instructions: Scribed by Ambar Stovall medical assisting program director, for Michela Becker PA-C on 08/21/2023 at 8:42 am, EST. Coding Level of Care Code Global (73586) Diagnoses Extensor tendon laceration of finger with open wound, subsequent encounter S56.429D; S61.209D Encounter type: subsequent encounter Laceration
[2023-08-21 08:40] VITALS: BMI 31.7
== END 2023-08-21 09:02 | disposition home or self-care (01) ==
PROVIDERS: Visit Provider Physician Assistant
DX: S56.429D Laceration of extensor muscle, fascia and tendon of unspecified finger at forearm level, subsequent encounter (principal); S61.209D Unspecified open wound of unspecified finger without damage to nail, subsequent encounter
CPT/HCPCS: 99024

== ENCOUNTER → 2023-08-21 08:35 | Outpatient (BNVA) | payer MEDICAID, SELFPAY | PROVIDERS: Visit Provider Physician Assistant | DX: S56.429D Laceration of extensor muscle, fascia and tendon of unspecified finger at forearm level, subsequent encounter (principal); S61.209D Unspecified open wound of unspecified finger without damage to nail, subsequent encounter | CPT/HCPCS: 99212 ==

== ENCOUNTER 2023-10-24 14:18 | Emergency (ER) | payer MEDICAID, SELFPAY ==
--- NOTE | ~2023-10-24 | CT_ITS ---
EXAMINATION: CT HEAD WITHOUT CONTRAST CLINICAL INFORMATION: Follow-up tiny parafalcine subdural hemorrhage. COMPARISON: CTA head dated 10/24/2023. TECHNIQUE: Contiguous axial imaging was performed from the skull base to vertex without intravenous administration of contrast. This CT examination was performed using dose optimization techniques as appropriate, variously including the following: *Automated exposure control *Adjustment of mA and/or kV according to patient size (this includes techniques or standardized protocols for targeted exams where dose is matched to indication/reason for exam; i.e. extremities or head) *Use of iterative reconstruction technique DLP: 679 mGy-cm FINDINGS: There is again a 3 mm focus of parafalcine thickening, which is unchanged from the prior CT examination earlier on 10/24/2023 (5:100). There is no new intracranial hemorrhage or evidence of territorial infarction. No abnormal mass effect or midline shift is seen. Michael to white matter differentiation is well preserved. There is no abnormal attenuation within the brain parenchyma. The ventricles are normal in size. No extra-axial fluid collections are identified. No fracture is seen. There are scalp hematomas at the rightward and posterior vertex and more posteriorly within the scalp. Posterior scalp surgical juan f are noted. The middle ear cavity and mastoid air cells are clear. There is mild layering fluid within the left maxillary sinus. CT/CT head/brain wo IV con IMPRESSION: 1. A minimal parafalcine subdural hemorrhage is unchanged in appearance. 2. No new extra-axial or parenchymal hemorrhage is seen. There is no mass effect. Michael-white matter differentiation is well preserved. 3. Rightward posterior scalp hematomas are seen, without underlying fracture. 4. There is mild left maxillary sinusitis.
--- NOTE | ~2023-10-24 | CT_ITS ---
EXAMINATION: CT HEAD W/O IV CONTRAST CT CERVICAL SPINE W/O IV CONTRAST CLINICAL INFORMATION: History of fall with head strike and laceration. COMPARISON: None TECHNIQUE: Head - Contiguous axial imaging of the head was performed from the skull base to the vertex without the administration of intravenous contrast, and axial images are reconstructed at 0.625 mm and 5 mm slice thickness. Cervical spine - A volumetric, helical CT acquisition of the cervical spine was obtained without contrast; in addition to the standard set of axial images, multiplanar reformatted images were provided in the coronal and sagittal imaging planes. This CT examination was performed using dose optimization techniques as appropriate, variously including the following: *Automated exposure control *Adjustment of mA and/or kV according to patient size (this includes techniques or standardized protocols for targeted exams where dose is matched to indication/reason for exam; i.e. extremities or head) *Use of iterative reconstruction technique DLP: 1090 mGy-cm (total) FINDINGS: HEAD: No evidence of subarachnoid bleed, intraparenchymal or intraventricular hemorrhage. There are areas along the falx in which there is minimal hyperdense thickening of up to 0.2 - 0.3 cm transverse which, in a posttraumatic setting, is suspicious for minimal parafalcine subdural hemorrhage. The cordova-white matter differentiation is maintained. No acute major vascular territory infarction. The ventricles have normal size and contour. No hydrocephalus. The calvarium is intact. There are a few small foci of gas in the occipital scalp at site of soft tissue hematoma compatible with history of laceration. Incidentally noted is mucus - or mucus retention cysts - of inferior maxillary sinuses and trace amount of fluid within left maxillary sinus. The mastoid air cells are well aerated. The orbits and temporomandibular joints are normal. CERVICAL SPINE: The craniocervical junction is normal. The occipital condyles, dens and atlantodental articulation are intact. The vertebral body heights and alignment are maintained. No fractures in the anterior or posterior elements. No prevertebral soft tissue edema or soft tissue hematoma. There is anterior vertebral osteophyte formation at C4-C5, C5-C6 and C6-C7. There is no significant narrowing of the cervical spinal canal or neural foramina. There is a hemangioma of the C7 vertebral body. No suspicious osseous lesions. The lung apices are excluded from [id number]. The right thyroid lobe is larger than the left lobe. The gland is heterogeneous and not optimally evaluated. Thyroid ultrasound follow-up is recommended for this large, heterogeneous thyroid goiter. CT/CT cervical spine wo IV con IMPRESSION: * Acute occipital scalp hematoma has a few small foci of gas consistent with the history of head strike and laceration. No calvarial fracture. * There is likely a very small parafalcine subdural hemorrhage. * Mild spondylosis of the cervical spine. No fracture or malalignment of the spine. The critical test result was discussed with Vidhi Mendez at 4:08 PM on 10/24/2023 and it was ascertained that the content and the importance of the findings was understood at the time of the direct communication.
--- NOTE | ~2023-10-24 | XR_ITS ---
EXAMINATION: XR HAND/WRIST, LEFT CLINICAL INFORMATION: Fell off a ladder. Swelling. COMPARISON: None TECHNIQUE: Four views of the left hand and wrist. FINDINGS: Faint transverse line through the metadiaphysis of the distal radius consistent with a nondisplaced fracture. Moderate joint narrowing and small marginal bone spurs of the PIP joint of the middle finger. Joint spaces are otherwise normal. Benign partial osteosclerosis of the distal phalange of the middle digit XR/XR hand wrist LT IMPRESSION: Nondisplaced fracture of the metadiaphysis of the distal radius.
[2023-10-24 14:21] VITALS: BP 141/72; PULSE 51; RESP 15; TEMP 36.6; O2SAT 99; BMI 29.6
--- NOTE | 2023-10-24 14:22 | ED_ITS ---
HPI - General Adult General Chief complaint: Head Injury Stated complaint: Fell of ladder/head lac Time Seen by Provider: 10/24/23 16:10 Source: patient and remedy developer Mode of arrival: ambulatory Limitations: no limitations History of Present Illness ED Provider: DAYANA HPI narrative: 63 yo male here with PMH of HTN and gout not on thinners or aspirin presents with c/o falling off top of 6ft step ladder landing backwards hitting back of head on rocks, no LOC, he has not vomited. He has not had prior head injury before. He also has L wrist pain. Injury prior to me seeing him was 2 hours. complaint: head injury Onset (ago): hour(s) (2) Location: head, left and upper extremity Radiation: non-radiation Severity: moderate Quality: aching Associated symptoms: other (laceration, L wrist pain) Treatments prior to arrival: other (bandage) Related Data Home Medications ?Medication ?Instructions ?Recorded ?Confirmed olmesartan 40 1 tab PO QAM 07/02/23 07/02/23 mg-hydrochlorothiazide 12.5 mg tablet febuxostat 40 mg tablet 40 mg PO DAILY 07/10/23 Allergies Allergy/AdvReac Type Severity Reaction Status Date / Time No Known Allergies Allergy Verified 10/24/23 14:23 Review of Systems 2 Review of Systems: Constitutional : No Fever, No Chills, No Fatigue ENT/Mouth : No sore throat, No Rhinorrhea Eyes: No Eye Pain, No Swelling, No Redness Cardiovascular : No Chest Pain, No SOB, No Dyspnea on Exertion Respiratory : No Cough, No Sputum Gastrointestinal : No Nausea, No Vomiting, No Diarrhea, No abdominal Pain Genitourinary : No Dysuria, No Urinary Frequency, No Hematuria, Musculoskeletal : pos joint pain, No Myalgias, No Joint Swelling Skin : No Skin Lesions, No rash, pos skin laceration Neuro : No Weakness, No Numbness, No Dizziness, positive Headache Psych : No Anxiety/Panic, No Depression All other systems reviewed and are negative [facility] Past Medical History Attestation statement: The following information was validated with the patient. Source: old records reviewed Medical History HTN (hypertension) Surgical History H/O toe surgery Social History Social History Alcohol intake: never Patient Tobacco Use Status: Never used Tobacco Smoked in Last 30 Days: No Use of substances other than those prescribed or required for medical reasons: No Advance Directives: No Advance Directives Information Provided: No Do you have a plan to hurt others: No Plan Current occupational status: employed Current occupation: [employer]/ right hand dominant Physical Exam ED Vital Signs: Vital Signs - 24 hr 10/24/23 14:21 10/24/23 16:06 10/24/23 19:02 Temperature 98 F 98.4 F 97.3 F Pulse Rate 51 65 63 Respiratory Rate 15 16 14 Blood Pressure 141/72 H 141/87 H 127/81 Pulse Oximetry 99 98 99 Oxygen Delivery Method Room Air Room Air Room Air 10/24/23 20:13 Temperature 98.3 F Pulse Rate 63 Respiratory Rate 16 Blood Pressure 128/79 Pulse Oximetry 98 Oxygen Delivery Method Room Air BMI result Body Mass Index 29.6 Appearance: Alert. Oriented X3. No acute distress. Eyes: Pupils equal, round and reactive to light. ENT: Pharynx normal. no mason sign or raccoon eyes, no nasal septal hematoma, no hemotympanum, posterior L scalp 9cm linear laceration Neck: Normal inspection. Neck supple. no midline ttp distal NV intact CVS: Normal heart rate and rhythm. Pulses normal. Respiratory: No respiratory distress. Breath sounds normal. Abdomen: Soft and nontender. atraumatic Back: atraumatic Skin: Skin warm and dry. Normal skin color. Normal skin turgor. Extremities: No lower extremity edema. L wrist distal radius ttp 2+ DP intact, SILT intact Neuro: Oriented X 3. No motor deficit. No sensory deficit. Course Course Course Narrative: This is a rapid medical exam performed by Autumn Mendez NP: Additional HPI, ROS, PE not included below will be deferred to primary provider. Patient is a 63 year old right hand dominant male presenting to the ED with complaint of laceration to occipital area and left wrist pain after falling backwards off a step ladder and hitting his head on a rock. Denies loss of consciousness. Not anticoagulated. Unsure if he got Tdap at most recent ED visit. Plan: CT, xray Notified by radiologist that CT head shows subdural hematoma, Dr. Johnson and nurse midwife/clinical instructor notified Reevaluation(s) Reevaluation #1: call out to [facility] transfer center 434pm Reevaluation #2: 449pm call from [facility] grade 1 observe 6 hours if okay can go home, recommends no scan unless he decompensates follow up with PCP observe until 1030pm tonight. will sign out to oncoming provider Reevaluation #3: GCS 15 601pm no acute changes in mental status 730pm normal neuro exam no acute changed 850pm no change still GCS [address] Lu at [address] repeat CT scan and neuro recheck Medications Administered Discontinued Medications Generic Name Dose Route Start Last Admin Trade Name Freq PRN Reason Stop Dose Admin Diphtheria/Tetanus/Acell Pertussis 0.5 ml 10/24/23 16:40 10/24/23 18:37 Diphth,Pertus(Acell),Tet Adult 0.5 Ml Syringe IM 10/24/23 16:41 Not Given .ONCE ONE Procedures FAST Exam FAST Exam 1: Fluid in Morison's pouch: No Fluid in Splenorenal Junction: No Fluid around bladder, Transverse view: No Fluid around bladder, Sagittal view: No Fluid in Pericardial Sac: No Gross Wall Motion Abnormality: No Study normal for this patient: Yes Laceration Laceration 1: Site: scalp Side (If applicable): left Size (cm): 9 Description: linear Depth: simple, single layer Pre-repair: wound explored and irrigated extensively (did evacuate small clot) Skin layer closed with: other (9 juan f) Medical Decision Making Medical Decision Making MDM Narrative: 63 yo male here with PMH of HTN presents with c/o fall off top of 6ft ladder no LOC not on thinners but with laceration to scalp had imaging ordered from triage - provider called about parafalcine SDH. He was brought back to the room, has laceration will repair and update Tdap, L wrist nondisplaced radius fracture will splint - FAST done no free fluid seen, head of bed elevated, BP recheck, he is GCS 15. Will consult [facility] trauma. Differential Diagnosis Differential Diagnoses: The differential diagnosis associated with the presentation includes head injury, fracture Admission/Observation Consideration of admission/observation: Escalation of care including admission/observation considered physician observation started at 457pm pending period of 6 hours of injury Consult Healthcare Provider Management of the patient was discussed with: Field Operations Coordinator Lab Data MDM Lab Attestation statement: I reviewed the patient's lab results. 10/24/23 16:25 10/24/23 16:25 Labs: Lab Results 10/24/23 Range/Units 16:25 WBC 13.9 H (4.8-10.8) X10*3/uL RBC 5.09 (4.60-5.80) X10*6/uL Hgb 14.9 (14.0-18.0) g/dl Hct 44.4 (42.0-52.0) % MCV 87.2 (80.0-98.0) fL MCH 29.3 (27.0-33.0) pg MCHC 33.6 (31.0-36.0) g/dl RDW 13.0 (11.0-16.0) % Plt Count 183 (160-400) X10*3/uL MPV 9.8 (9.4-12.4) fL Immature Gran % (Auto) 0.4 (0.0-0.4) % Neut % (Auto) 83.1 H (45-73) % Lymph % (Auto) 9.3 L (20-40) % Cherry % (Auto) 6.5 (2-11) % Eos % (Auto) 0.3 (0-4) % Baso % (Auto) 0.4 (0-2) % Lymph # (Auto) 1.3 (1.2-4.9) X10*3/uL Cherry # (Auto) 0.9 (0.1-1.2) X10*3/uL Eos # (Auto) 0.0 (0.0-0.4) X10*3/uL Baso # (Auto) 0.1 (0.0-0.2) X10*3/uL Abs Immat Gran (auto) 0.06 H (0.00-0.03) X10*3/uL Absolute Neuts (auto) 11.6 H (2.0-8.3) x10*3/uL Absolute Nucleated RBC 0.000 (0.0-0.012) X10*3/uL Nucleated RBC % (auto) 0.0 (0.0-0.2) /100WBC PT 11.6 (11.1-13.3) SEC INR 1.0 (0.9-1.1) Sodium 143 (135-145) mmol/L Potassium 4.8 (3.3-5.1) mmol/L Chloride 106 (96-108) mmol/L Carbon Dioxide 25 (22-29) mmol/L Anion Gap 17 (12-20) BUN 19 H (9-16) mg/dL Creatinine 1.20 (0.5-1.4) mg/dL Estim Creat Clear Calc 74.5 Estimated GFR > 60 Random Glucose 104 (60-115) mg/dL Calcium 10.1 (8.4-10.2) mg/dL Magnesium 2.2 (1.6-2.6) mg/dL Total Bilirubin 0.6 (0.0-1.0) mg/dL Direct Bilirubin 0.2 (0.0-0.5) mg/dL AST 28 (5-37) U/L ALT 23 (0-40) U/L Alkaline Phosphatase 101 (39-117) U/L Total Protein 8.0 (6.5-8.0) g/dL Albumin 5.0 (3.5-5.0) g/dL Independent Interpretation I performed an independent interpretation of an: Plain X-Ray and CT Scan Interpretation: FINDINGS: Faint transverse line through the metadiaphysis of the distal radius consistent with a nondisplaced fracture. Moderate joint narrowing and small marginal bone spurs of the PIP joint of the middle finger. Joint spaces are otherwise normal. Benign partial osteosclerosis of the distal phalange of the middle digit XR/XR hand wrist LT IMPRESSION: Nondisplaced fracture of the metadiaphysis of the distal radius. HEAD: No evidence of subarachnoid bleed, intraparenchymal or intraventricular hemorrhage. There are areas along the falx in which there is minimal hyperdense thickening of up to 0.2 - 0.3 cm transverse which, in a posttraumatic setting, is suspicious for minimal parafalcine subdural hemorrhage. The cordova-white matter differentiation is maintained. No acute major vascular territory infarction. The ventricles have normal size and contour. No hydrocephalus. The calvarium is intact. There are a few small foci of gas in the occipital scalp at site of soft tissue hematoma compatible with history of laceration. Incidentally noted is mucus - or mucus retention cysts - of inferior maxillary sinuses and trace amount of fluid within left maxillary sinus. The mastoid air cells are well aerated. The orbits and temporomandibular joints are normal. CERVICAL SPINE: The craniocervical junction is normal. The occipital condyles, dens and atlantodental articulation are intact. The vertebral body heights and alignment are maintained. No fractures in the anterior or posterior elements. No prevertebral soft tissue edema or soft tissue hematoma. There is anterior vertebral osteophyte formation at C4-C5, C5-C6 and C6-C7. There is no significant narrowing of the cervical spinal canal or neural foramina. There is a hemangioma of the C7 vertebral body. No suspicious osseous lesions. The lung apices are excluded from [id number]. The right thyroid lobe is larger than the left lobe. The gland is heterogeneous and not optimally evaluated. Thyroid ultrasound follow-up is recommended for this large, heterogeneous thyroid goiter. CT/CT head/brain wo IV con IMPRESSION: * Acute occipital scalp hematoma has a few small foci of gas consistent with the history of head strike and laceration. No calvarial fracture. * There is likely a very small parafalcine subdural hemorrhage. * Mild spondylosis of the cervical spine. No fracture or malalignment of the spine Radiology Impression Discussion of test interpretation with radiology: I have reviewed the radiologist's reading. Independent Historian Clinical information obtained from an independent historian. History obtained from or confirmed by: Friend External Record Review External record reviewed: Outpatient record Critical Care Time Critical Care Time Critical Care Time: Yes Total Critical Care Time: 6 Attestation: consult, repeat bedside assessments, review of records, repeat neuro checks, family discussions I attest to this time spent taking care of the patient Discharge Plan Discharge Clinical Impression: Laceration of scalp, Distal radius fracture, left, Acute subdural hematoma Patient Disposition: Still a Patient Instructions: Laceration (ED), Wrist Fracture in Adults (ED), Intracranial Hematoma (ED) Additional Instructions: return for severe headaches, vomiting, confusion, change in vision or any other concerns YOU CANNOT TAKE ASPIRIN YOU CANNOT TAKE BLOOD THINNERS no strenuous activity until cleared by your primary care doctor follow up with your primary care doctor as soon as possible wrist fracture wear splint until you see orthopedics there is a small fracture but not displaced okay to shower, sutures out in 10 days. Prescriptions: No Action olmesartan-hydrochlorothiazide 40-12.5 mg tablet 1 tab PO QAM febuxostat 40 mg tablet 40 mg PO DAILY Referrals: Michela Becker PA-C [Physician Race Car Driver] - (orthopedics call to follow up and schedule) Print Language: Tuvaluan
[2023-10-24 16:06] VITALS: BP 141/87; PULSE 65; RESP 16; TEMP 36.9; O2SAT 98
[2023-10-24 16:28] LABS: MANUAL DIFF FLAG NO
[2023-10-24 16:33] LABS: Basophils Absolute Auto 0.1 X10*3/uL (0.0-0.2); Basophils Percent Auto 0.4 % (0-2); Eosinophils Percent Auto 0.3 % (0-4); Hematocrit 44.4 % (42.0-52.0); Hemoglobin 14.9 g/dl (14.0-18.0); Imm Gran Abs Auto 0.06 X10*3/uL (0.00-0.03); Imm Gran Pct Auto 0.4 % (0.0-0.4); Lymphocytes Absolute Auto 1.3 X10*3/uL (1.2-4.9); Lymphocytes Percent Auto 9.3 % (20-40); Mean Corpuscular HGB Conc 33.6 g/dl (31.0-36.0); Mean Corpuscular Hemoglobin 29.3 pg (27.0-33.0); Mean Corpuscular Volume 87.2 fL (80.0-98.0); Mean Platelet Volume 9.8 fL (9.4-12.4); Monocytes Absolute Auto 0.9 X10*3/uL (0.1-1.2); Monocytes Percent Auto 6.5 % (2-11); Neutrophils Absolute Auto 11.6 x10*3/uL (2.0-8.3); Neutrophils Percent Auto 83.1 % (45-73); Platelet Count 183 X10*3/uL (160-400); Red Blood Count 5.09 X10*6/uL (4.60-5.80); White Blood Count 13.9 X10*3/uL (4.8-10.8)
[2023-10-24 16:35] LABS: Prothrombin Time 11.6 SEC (11.1-13.3)
[2023-10-24 17:06] LABS: Alanine Aminotransferase 23 U/L (0-40); Alkaline Phosphatase 101 U/L (39-117); Anion Gap 17 (12-20); Aspartate Amino Transferase 28 U/L (5-37); Bilirubin Direct 0.2 mg/dL (0.0-0.5); Bilirubin Total 0.6 mg/dL (0.0-1.0); Blood Urea Nitrogen 19 mg/dL (9-16); Calcium 10.1 mg/dL (8.4-10.2); Carbon Dioxide 25 mmol/L (22-29); Chloride 106 mmol/L (96-108); Creatinine Clr Calc Pharmacy 74.5; Estimated Glomerular Filt Rate > 60; Glucose Random 104 mg/dL (60-115); Magnesium 2.2 mg/dL (1.6-2.6); Potassium 4.8 mmol/L (3.3-5.1); Sodium 143 mmol/L (135-145)
[2023-10-24 19:02] VITALS: BP 127/81; PULSE 63; RESP 14; TEMP 36.3; O2SAT 99
[2023-10-24 20:13] VITALS: BP 128/79; PULSE 63; RESP 16; TEMP 36.8; O2SAT 98
--- NOTE | 2023-10-24 20:44 | PC.NURSE ---
Report taken from Ave CAMACHO, assumed care of pt at 1900. Pt resting comfortably, A&Ox3 skin pwd respirations even unlabored. Dressing to head CDI. Plan for obs until 0 and reeval, ? repeat CT. Aware of plan of care. Will continue to monitor for additional needs.
--- NOTE | 2023-10-24 21:25 | PC.NURSE ---
Pt off floor for repeat CT.
[2023-10-24] MEDS: Acetaminophen 325 MG TABLET 650 MG PO (22:20)
--- NOTE | 2023-10-24 22:25 | PC.NURSE ---
Pt medicated per MAY, ice pack given for left wrist. Awaiting repeat CT results and MD reeval, offers no additional complaints, aware of plan of care.
[2023-10-25 00:07] VITALS: BP 132/72; PULSE 68; RESP 16; TEMP 36.7; O2SAT 98
== END 2023-10-25 00:08 | disposition home or self-care (01) ==
PROVIDERS: Emergency Medicine; Emergency Provider Internal Medicine
DX: S06.5X0A Traumatic subdural hemorrhage without loss of consciousness, initial encounter (principal); S52.592A Other fractures of lower end of left radius, initial encounter for closed fracture; S01.01XA Laceration without foreign body of scalp, initial encounter; W11.XXXA Fall on and from ladder, initial encounter; Y93.89 Activity, other specified; Y92.9 Unspecified place or not applicable; Y99.9 Unspecified external cause status
CPT/HCPCS: 12004; 29515; 36415; 70450; 72125; 73110; 73130; 80048; 80076; 83735; 85025; 85610; 99284